=== PATIENT | male | born 1965 | race Caucasian/White ===

== ENCOUNTER 2024-10-26 03:55 | Emergency (ER) | payer OTHER ==
[2024-10-26] MEDS ORDERED: Ketorolac Tromethamine 30 MG (1 mL) VIAL ONE (04:17)
[2024-10-26] MEDS ORDERED: Amoxicillin/Potassium Clav 875 MG TAB ONE (04:24)
== END 2024-10-26 04:26 | disposition home or self-care (01) ==
LOC: ERS 03:55
DX: H66.92 Otitis media, unspecified, left ear (principal); F17.210 Nicotine dependence, cigarettes, uncomplicated
CPT/HCPCS: 96372; 99282; J1885

== ENCOUNTER 2024-11-06 18:17 | Emergency (ER) | payer OTHER ==
[2024-11-06] MEDS ORDERED: Famotidine 20 MG TAB ONE (20:05)
[2024-11-06] MEDS ORDERED: predniSONE 20 MG TAB ONE (20:05)
[2024-11-06] MEDS ORDERED: diphenhydrAMINE 25 MG CAP ONE (20:05)
== END 2024-11-06 20:30 | disposition home or self-care (01) ==
LOC: ERS 18:17
DX: T78.40XA Allergy, unspecified, initial encounter (principal); H66.92 Otitis media, unspecified, left ear; H60.92 Unspecified otitis externa, left ear; F17.210 Nicotine dependence, cigarettes, uncomplicated
CPT/HCPCS: 99282; J7512